=== PATIENT | male | born 2000 | race Caucasian/White ===

== ENCOUNTER 2021-05-06 00:15 | Emergency (ER) | payer BC, OTHER ==
[2021-05-06] MEDS ORDERED: Insulin Aspart 100 Units/ML 3 ML Pen SUBCUT ONE (00:30)
[2021-05-06] MEDS ORDERED: Sodium Chloride 0.9% 1,000 ML IV ONE ×3 (00:35→01:45)
[2021-05-06] MEDS ORDERED: Sodium Chloride 0.9% 1,000 ML ONE (00:55)
[2021-05-06] MEDS ORDERED: Ondansetron 4 MG/2 ML SDV IVPUSH ONE (01:01)
[2021-05-06] MEDS ORDERED: Calcium Carbonate 500 MG Tab.Chew PO ONE (01:02)
[2021-05-06] MEDS ORDERED: Alum Hydrox/Mag Hydrox/Simeth 30 ML, Lidocaine 2% 15 ML PO ONE ×2 (01:10)
[2021-05-06 01:11] LABS: ANION GAP 37.9 mmol/L (5-15); CHLORIDE,CL 93 mmol/L (98-107); SODIUM,NA 135 mmol/L (136-145)
[2021-05-06 01:11] LABS: O2 DELIVERY DEVICE ROOM AIR
--- NOTE | 2021-05-06 01:11 | EDM.PDOC ---
ED HPI GENERAL MEDICAL PROBLEM - General Chief Complaint: Diabetic Complaint Stated Complaint: DKA Time Seen by Provider: 05/06/21 00:41 Source of Information: Reports: Patient, EMS, Other (friends) History Limitations: Reports: No Limitations - History of Present Illness INITIAL COMMENTS - FREE TEXT/NARRATIVE: Patient presents via ambulance with hyperglycemia and DKA he thinks. He has been vomiting frequently the last two days after eating some under-cooked goose. He thinks since he was so sick he wasn't taking care of his glucose. He normally uses Lantus and Humalog. He has had diabetes since age 8. - Related Data Allergies Allergy/AdvReac Type Severity Reaction Status Date / Time amoxicillin Allergy Hives Verified 05/06/21 00:41 Home Meds: Home Meds Insulin Glarg,Human.Rec.Analog [Lantus] 12 unit SUBCUT 2100 05/06/21 [History] Insulin Lispro [HumaLOG] 8 unit SQ ACBED 05/06/21 [History] ED ROS GENERAL - Review of Systems Review Of Systems: See Below Constitutional: Reports: Chills, Malaise. Denies: Fever HEENT: Reports: Throat Pain (from vomiting). Denies: Ear Pain, Vision Change Respiratory: Denies: Shortness of Breath, Cough Cardiovascular: Denies: Chest Pain, Lightheadedness, Syncope GI/Abdominal: Reports: Nausea, Vomiting. Denies: Abdominal Pain, Diarrhea : Denies: Dysuria, Flank Pain Musculoskeletal: Reports: No Symptoms Skin: Denies: Cyanosis, Jaundice, Mottled, Pallor Neurological: Denies: Confusion, Dizziness, Headache, Seizure, Syncope, Trouble Speaking, Difficulty Walking Psychiatric: Reports: Anxiety. Denies: Agitation, Confusion ED EXAM GENERAL NO PERIP PULSE - Physical Exam Exam: See Below Exam Limited By: No Limitations General Appearance: Alert, WD/WN, No Apparent Distress Eye Exam: Bilateral Eye: EOMI, Normal Inspection, PERRL Ears: Normal External Exam, Hearing Grossly Normal Nose: Normal Inspection, No Blood Throat/Mouth: Normal Inspection, Normal Lips, Normal Voice, No Airway Compromise Head: Atraumatic, Normocephalic Neck: Normal Inspection, Full Range of Motion Respiratory/Chest: No Respiratory Distress, Lungs Clear, Normal Breath Sounds Cardiovascular: No Murmur, Tachycardia GI/Abdominal: Normal Bowel Sounds, Soft, Non-Tender, No Organomegaly, No Distention, No Abnormal Bruit Back Exam: Normal Inspection, Full Range of Motion. No: CVA Tenderness (L), CVA Tenderness (R) Extremities: Normal Inspection, Normal Range of Motion, No Pedal Edema, Normal Capillary Refill Neurological: Alert, Oriented, Normal Cognition, No Motor/Sensory Deficits Psychiatric: Normal Affect, Anxious Skin Exam: Warm, Dry, Intact, Normal Color, No Rash Course - Vital Signs Last Recorded V/S: Last Vital Signs Temp 98.4 F 05/06/21 00:25 Pulse 144 H 05/06/21 00:25 Resp 32 H 05/06/21 00:25 BP 116/70 05/06/21 00:25 Pulse Ox 100 05/06/21 00:25 - Orders/Labs/Meds Orders: Active Orders 24 hr Category Date Time Status LACTIC ACID [CHEM] Stat Lab 05/06/21 00:57 Ordered Insulin Regular in 0.9 % NACL @ 0.1 UNITS/KG/HR (100ml) Med 05/06/21 01:21 Ordered Insulin Regular in 0.9 % NACL [Myxredlin in NS 100 UNIT /100 ML] 100 unit in 100 ml IV TITRATE Potassium Chloride [KCL in Water 20 MEQ/100 ML] 20 meq Med 05/06/21 01:16 Ordered Premix Bag 1 bag IV ONETIME Potassium Chloride [KCL in Water 20 MEQ/100 ML] 20 meq Med 05/06/21 01:20 Ordered Premix Bag 1 bag IV ONETIME Sodium Chloride 0.9% @ 999 MLS/HR (1000ml) Med 05/06/21 00:59 Ordered Sodium Chloride 0.9% [Normal Saline] 1,000 ml IV .BOLUS Sodium Chloride 0.9% [Normal Saline] 1,000 ml Med 05/06/21 00:35 Active IV .BOLUS Medication Orders Sodium Chloride (Normal Saline) 1,000 mls @ 999 mls/hr IV .BOLUS ONE Stop: 05/06/21 01:59 Last Admin: 05/06/21 01:00 Dose: 999 mls/hr Documented by: OZIEL Sodium Chloride (Normal Saline) 1,000 mls @ 999 drops/hr IV .BOLUS ONE Stop: 05/06/21 15:35 Last Admin: 05/06/21 00:40 Dose: 999 drops/hr Documented by: OZIEL Potassium Chloride 20 meq/ (Premix) 100 mls @ 50 mls/hr IV ONETIME ONE Stop: 05/06/21 03:15 Potassium Chloride 20 meq/ (Premix) 100 mls @ 50 mls/hr IV ONETIME ONE Stop: 05/06/21 03:19 Insulin Regular in 0.9 % NACL (Myxredlin In Ns 100 Unit/100 Ml) 100 unit in 100 mls @ 5.897 mls/hr IV TITRATE [place]; Protocol Labs: Laboratory Tests 05/06/21 05/06/21 05/06/21 Range/Units 00:10 00:10 01:05 WBC 11.67 H (5.00-10.00) 10^3/uL RBC 5.26 (4.50-6.00) 10^6/uL Hgb 16.4 (13.0-17.0) g/dL Hct 49.7 (40.0-52.0) % MCV 94.5 H (82.0-92.0) fL MCH 31.2 H (27.0-31.0) pg MCHC 33.0 (32.0-36.0) g/dL RDW 11.8 (11.5-14.5) % Plt Count 462 H (150-400) 10^3/uL MPV 9.7 (7.4-10.4) fL Immature Gran % (Auto) 0.7 (0.0-5.0) % Neut % (Auto) 74.7 H (50.0-70.0) % Lymph % (Auto) 18.8 L (20.0-40.0) % Pettis % (Auto) 5.3 (2.0-8.0) % Eos % (Auto) 0.1 L (1.0-3.0) % Baso % (Auto) 0.4 (0.0-1.0) % Neut # (Auto) 8.72 H (2.50-7.00) 10^3/uL Lymph # (Auto) 2.19 (1.00-4.00) 10^3/uL Pettis # (Auto) 0.62 (0.10-0.80) 10^3/uL Eos # (Auto) 0.01 L (0.10-0.30) 10^3/uL Baso # (Auto) 0.05 (0.00-0.10) 10^3/uL Immature Gran # (Auto) 0.08 (0.00-0.50) 10^3/uL VBG pH 7.11 L* (7.32-7.43) pH VBG pCO2 17 L* (41-51) mmHg VBG pO2 41 (35-42) mmHg VBG HCO3 6 L (22-29) mmol/L VBG Total CO2 7 mmol/L VBG O2 Saturation 60 % VBG Base Excess -22 L ((-2)-(+3)) mmol/L O2 Delivery Device Room air Sodium 135 L (136-145) mmol/L Potassium 4.0 (3.5-5.1) mmol/L Chloride 93 L (98-107) mmol/L Carbon Dioxide 8.1 L (21.0-32.0) mmol/L Anion Gap 37.9 H (5-15) mmol/L BUN 11 (7-18) mg/dL Creatinine 0.97 (0.51-1.17) mg/dL Est Cr Clr Drug Dosing 102.16 mL/min Estimated GFR (MDRD) > 60 mL/min Glucose > 500 H (70-140) mg/dL Calcium 8.8 (8.7-10.3) mg/dL Total Bilirubin 0.9 (0.2-1.0) mg/dL AST 43 H (13-38) U/L ALT 58 H (8-36) U/L Alkaline Phosphatase 175 H (46-116) U/L Total Protein 7.8 (6.4-8.2) g/dL Albumin 3.98 (3.40-5.00) g/dL Specimen Type Urine Color (YELLOW) Urine Appearance (CLEAR) Urine pH (5.0-9.0) Ur Specific [place] (1.005-1.030) Urine Protein (NEGATIVE) mg/dL Urine Glucose (UA) (NEGATIVE) mg/dL Urine Ketones (NEGATIVE) mg/dL Urine Occult Blood (NEGATIVE) Urine Nitrite (NEGATIVE) Urine Bilirubin (NEGATIVE) Urine Urobilinogen (0.2-1.0) E.U./dL Ur Leukocyte Esterase (NEGATIVE) Urine RBC (0-5) /HPF Urine WBC (0-5) /HPF Ur Epithelial Cells /LPF Urine Bacteria (NONE TO FEW) /HPF 05/06/21 Range/Units 01:29 WBC (5.00-10.00) 10^3/uL RBC (4.50-6.00) 10^6/uL Hgb (13.0-17.0) g/dL Hct (40.0-52.0) % MCV (82.0-92.0) fL MCH (27.0-31.0) pg MCHC (32.0-36.0) g/dL RDW (11.5-14.5) % Plt Count (150-400) 10^3/uL MPV (7.4-10.4) fL Immature Gran % (Auto) (0.0-5.0) % Neut % (Auto) (50.0-70.0) % Lymph % (Auto) (20.0-40.0) % Pettis % (Auto) (2.0-8.0) % Eos % (Auto) (1.0-3.0) % Baso % (Auto) (0.0-1.0) % Neut # (Auto) (2.50-7.00) 10^3/uL Lymph # (Auto) (1.00-4.00) 10^3/uL Pettis # (Auto) (0.10-0.80) 10^3/uL Eos # (Auto) (0.10-0.30) 10^3/uL Baso # (Auto) (0.00-0.10) 10^3/uL Immature Gran # (Auto) (0.00-0.50) 10^3/uL VBG pH (7.32-7.43) pH VBG pCO2 (41-51) mmHg VBG pO2 (35-42) mmHg VBG HCO3 (22-29) mmol/L VBG Total CO2 mmol/L VBG O2 Saturation % VBG Base Excess ((-2)-(+3)) mmol/L O2 Delivery Device Sodium (136-145) mmol/L Potassium (3.5-5.1) mmol/L Chloride (98-107) mmol/L Carbon Dioxide (21.0-32.0) mmol/L Anion Gap (5-15) mmol/L BUN (7-18) mg/dL Creatinine (0.51-1.17) mg/dL Est Cr Clr Drug Dosing mL/min Estimated GFR (MDRD) mL/min Glucose (70-140) mg/dL Calcium (8.7-10.3) mg/dL Total Bilirubin (0.2-1.0) mg/dL AST (13-38) U/L ALT (8-36) U/L Alkaline Phosphatase (46-116) U/L Total Protein (6.4-8.2) g/dL Albumin (3.40-5.00) g/dL Specimen Type Urinvoid Urine Color Yellow (YELLOW) Urine Appearance Clear (CLEAR) Urine pH 5.0 (5.0-9.0) Ur Specific [place] 1.025 (1.005-1.030) Urine Protein Trace H (NEGATIVE) mg/dL Urine Glucose (UA) 500 H (NEGATIVE) mg/dL Urine Ketones >=160 H (NEGATIVE) mg/dL Urine Occult Blood Trace-lysed H (NEGATIVE) Urine Nitrite Negative (NEGATIVE) Urine Bilirubin Negative (NEGATIVE) Urine Urobilinogen 0.2 (0.2-1.0) E.U./dL Ur Leukocyte Esterase Negative (NEGATIVE) Urine RBC 0-5 (0-5) /HPF Urine WBC Not seen (0-5) /HPF Ur Epithelial Cells Few /LPF Urine Bacteria Rare (NONE TO FEW) /HPF Meds: Medications Generic Name Dose Route Start Last Admin Trade Name Ernestoq PRN Reason Stop Dose Admin Sodium Chloride 1,000 mls @ 999 mls/hr 05/06/21 00:59 05/06/21 01:00 Normal Saline IV 05/06/21 01:59 999 mls/hr .BOLUS ONE Administration Sodium Chloride 1,000 mls @ 999 drops/hr 05/06/21 00:35 05/06/21 00:40 Normal Saline IV 05/06/21 15:35 999 drops/hr .BOLUS ONE Administration Potassium Chloride 20 meq/ 100 mls @ 50 mls/hr 05/06/21 01:16 Premix IV 05/06/21 03:15 ONETIME ONE Potassium Chloride 20 meq/ 100 mls @ 50 mls/hr 05/06/21 01:20 Premix IV 05/06/21 03:19 ONETIME ONE Insulin Regular in 0.9 % NACL 100 unit in 100 mls @ 5.897 mls/hr 05/06/21 01:21 Myxredlin In Ns 100 Unit/100 Ml IV TITRATE [place] Protocol 0.1 UNITS/KG/HR Discontinued Medications Generic Name Dose Route Start Last Admin Trade Name Giselle PRN Reason Stop Dose Admin Calcium Carbonate/Glycine 1,000 mg 05/06/21 01:02 05/06/21 01:04 Calcium Carbonate 500 Mg Tab.Chew PO 05/06/21 01:03 1,000 mg ONETIME ONE Administration Al Hydroxide/Mg Hydroxide 30 0 ml 05/06/21 01:10 05/06/21 01:17 ml/ Lidocaine HCl 15 ml PO 05/06/21 01:11 45 ml ONETIME ONE Administration Sodium Chloride Confirm 05/06/21 00:55 05/06/21 01:08 Normal Saline Administered 05/06/21 00:56 Not Given Dose 1,000 mls @ as directed .ROUTE .STK-MED ONE Insulin Aspart 5 unit 05/06/21 00:30 05/06/21 00:34 Insulin Aspart 100 Units/Ml 3 Ml Pen SUBCUT 05/06/21 00:31 5 unit ONETIME ONE Administration Ondansetron HCl 4 mg 05/06/21 01:01 05/06/21 00:30 Ondansetron 4 Mg/2 Ml Sdv IVPUSH 05/06/21 01:02 4 mg ONETIME ONE Administration - Re-Assessments/Exams Free Text/Narrative Re-Assessment/Exam: 05/06/21 01:49 We have given 3 liters of NS (including one with EMS); patient is feeling better. Has had Novolog 5 units, KCl 40 IV, insulin drip started here. Labs as above. Irvin was consulted early on and assisted with treatment and coordinating transfer to [facility] in [place]. I discussed case with Dr. Joseph who accepted for transfer there. I discussed findings and treatment plan with patient who agrees. Patient improved and relatively stabilized at discharge. Departure - Departure Time of Disposition: 01:45 Disposition: DC/Tfer to Acute Hospital 02 Condition: Good Clinical Impression: Hyperglycemia due to type 1 diabetes mellitus DKA (diabetic ketoacidosis) Qualifiers: Diabetes mellitus type: type 1 Diabetes mellitus complication detail: without coma Qualified Code(s): E10.10 - Type 1 diabetes mellitus with ketoacidosis without coma - Discharge Information Forms: ED Department Discharge Sepsis Event Note (ED) - Focused Exam Vital Signs: Vital Signs Temp Pulse Resp BP Pulse Ox 05/06/21 00:25 98.4 F 144 H 32 H 116/70 100 - My Orders Last 24 Hours: My Active Orders 05/06/21 00:35 Sodium Chloride 0.9% [Normal Saline] 1,000 ml IV .BOLUS 05/06/21 00:57 LACTIC ACID [CHEM] Stat 05/06/21 00:59 Sodium Chloride 0.9% @ 999 MLS/HR (1000ml) Sodium Chloride 0.9% [Normal Saline] 1,000 ml IV .BOLUS 05/06/21 01:16 Potassium Chloride [KCL in Water 20 MEQ/100 ML] 20 meq Premix Bag 1 bag IV ONETIME 05/06/21 01:20 Potassium Chloride [KCL in Water 20 MEQ/100 ML] 20 meq Premix Bag 1 bag IV ONETIME 05/06/21 01:21 Insulin Regular in 0.9 % NACL @ 0.1 UNITS/KG/HR (100ml) Insulin Regular in 0.9 % NACL [Myxredlin in NS 100 UNIT/100 ML] 100 unit in 100 ml IV TITRATE - Assessment/Plan Last 24 Hours: My Active Orders 05/06/21 00:35 Sodium Chloride 0.9% [Normal Saline] 1,000 ml IV .BOLUS 05/06/21 00:57 LACTIC ACID [CHEM] Stat 05/06/21 00:59 Sodium Chloride 0.9% @ 999 MLS/HR (1000ml) Sodium Chloride 0.9% [Normal Saline] 1,000 ml IV .BOLUS 05/06/21 01:16 Potassium Chloride [KCL in Water 20 MEQ/100 ML] 20 meq Premix Bag 1 bag IV ONETIME 05/06/21 01:20 Potassium Chloride [KCL in Water 20 MEQ/100 ML] 20 meq Premix Bag 1 bag IV ONETIME 05/06/21 01:21 Insulin Regular in 0.9 % NACL @ 0.1 UNITS/KG/HR (100ml) Insulin Regular in 0.9 % NACL [Myxredlin in NS 100 UNIT/100 ML] 100 unit in 100 ml IV TITRATE
[2021-05-06 01:14] LABS: BASE EXCESS VENOUS -22 mmol/L ((-2)-(+3)); BICARBONATE,VENOUS 6 mmol/L (22-29); O2 SATURATION VENOUS 60 %; PO2 VENOUS 41 mmHg (35-42)
[2021-05-06] MEDS ORDERED: Potassium Chloride 20 MEQ in Premix Bag 1 BAG IV ONE ×2 (01:16→01:20)
[2021-05-06 01:18] LABS: PCO2 VENOUS 17 mmHg (41-51); PH,VENOUS 7.11 pH (7.32-7.43)
[2021-05-06] MEDS ORDERED: Sodium Chloride 0.9% 1,000 ML IV SCH (01:50)
== END 2021-05-06 02:15 ==
LOC: KA.ED 00:15
DX: E10.65 Type 1 diabetes mellitus with hyperglycemia (principal); E10.10 Type 1 diabetes mellitus with ketoacidosis without coma; Z88.0 Allergy status to penicillin
CPT/HCPCS: 36415; 80053; 81001; 82803; 82947; 85025; 96365; 96375; 99285-25; A9270-GY; J1815-GY; J2405; J3480; J7030; Q3014